=== PATIENT | male | born 1965 | race Caucasian/White ===

== ENCOUNTER 2019-11-12 07:02 | Day surgery (SDC) | payer BC ==
[~2019-11-12] VITALS: Ht 172.7 cm; Wt 76.1 kg
--- NOTE | 2019-11-12 07:51 | NUR ---
History, Chart, Medications and Allergies reviewed before start of procedure. Patient confirms NPO status and agrees with scheduled surgery. Lungs clear T/O to Auscultation. Pre-Op teaching done. Pt verbalizes understanding. Patient States Post-Procedure ride home has been arranged. NO JEWELRY, DENTURES, CONTACTS, GLASSES, OR HEARING DEVICES PRESENT AT ADMIT.
--- NOTE | 2019-11-12 08:10 | NUR ---
HEATH STEPPED AWAY TO DO ERRANDS, PATIENT AWARE.
--- NOTE | 2019-11-12 09:10 | NUR ---
OR REPORT COMLETED AT BEDSIDE WITH VALERIE ALMONTE.
--- NOTE | 2019-11-13 09:12 | NUR ---
11/13/19 0912 Ruthie Mccoy: EDIT CHART.
== END 2019-11-12 12:00 | disposition home or self-care (01) ==
LOC: ORSCMMR 07:02 → ORD 08:30 → ORSCMMR 08:30
PROVIDERS: Surgery
PROC: 0YU50JZ Supplement Right Inguinal Region with Synthetic Substitute, Open Approach (ICD-10-PCS; principal; 2019-11-12 08:30)
DX: K40.90 Unilateral inguinal hernia, without obstruction or gangrene, not specified as recurrent (principal); E78.00 Pure hypercholesterolemia, unspecified; Z87.891 Personal history of nicotine dependence
CPT/HCPCS: A9270-GY; C1781; J0690; J1100; J1885; J2250; J2405; J2704; J3010; J7120

== ENCOUNTER → 2022-05-21 | Outpatient (CLI) | payer BC | END | disposition home or self-care (01) | LOC: LAB SHORT 10:58 → PLD 10:58 | DX: D48.5 Neoplasm of uncertain behavior of skin (principal) | CPT/HCPCS: 88305 ==

== ENCOUNTER 2022-10-03 05:26 | Inpatient (IN) | payer BC ==
[~2022-10-03] VITALS: Ht 172.7 cm; Wt 75.0 kg
[2022-10-03] MEDS ORDERED: OMEPRAZOLE MAGN20 M1 PO (05:46)
[2022-10-03] MEDS ORDERED: ATOR10 PO (05:46)
[2022-10-03] MEDS ORDERED: NITROGLYCERIN0.4 M3 SL (05:47)
[2022-10-03 06:21] LABS: BASOPHILS ABSOLUTE AUTO 0.07 K/mm3 (0.00-0.23); BASOPHILS PERCENT AUTO 1 % (0-2); EOSINOPHILS ABSOLUTE AUTO 0.33 K/mm3 (0.00-0.68); EOSINOPHILS PERCENT AUTO 5 % (0-6); Hematocrit 46.1 % (37.0-53.0); Hemoglobin 15.4 g/dL (13.5-17.5); IMMATURE GRAN ABSOLUTE AUTO 0.01 K/mm3 (0.00-0.10); IMMATURE GRAN PERCENT AUTO 0 % (0-1); LYMPHOCYTES ABSOLUTE AUTO 1.75 K/mm3 (0.84-5.20); LYMPHOCYTES PERCENT AUTO 25 % (21-46); MONOCYTES ABSOLUTE AUTO 0.58 K/mm3 (0.16-1.47); MONOCYTES PERCENT AUTO 8 % (4-13); Mean Corpuscular HGB 30.9 pg (26.0-34.0); Mean Corpuscular HGB Conc 33.4 g/dL (31.5-36.5); Mean Corpuscular Volume 93 fL (80-100); Mean Platelet Volume 9.5 fL (9.1-12.4); NEUTROPHILS ABSOLUTE AUTO 4.22 K/mm3 (1.96-9.15); NEUTROPHILS PERCENT AUTO 61 % (41-73); Platelet Count 306 K/mm3 (150-400); Red Blood Cell Count 4.98 M/mm3 (4.30-5.90); White Blood Cell Count 6.96 K/mm3 (4.00-11.30)
[2022-10-03 06:33] LABS: Albumin, Blood 3.7 g/dL (3.4-5.0); Bilirubin, Total 0.4 mg/dL (0.1-1.0); Bun/Creatinine Ratio 27.5 (12.0-20.0); Calcium, Blood 8.5 mg/dL (8.5-10.1); Creatinine, Blood 0.8 mg/dL (0.60-1.20); Globulin, Blood 3.7 g/dL (2.2-4.0); Potassium, Blood 4.1 mmol/L (3.5-5.5); Total Protein, Blood 7.4 g/dL (6.4-8.2)
[2022-10-03 08:21] LABS: Anti-Xa UFH, PHA Monitoring <0.10 IU/mL; International Normalized Ratio 0.99; Prothrombin Time Results 10.4 Sec (9.7-11.5)
--- NOTE | 2022-10-03 13:08 | NUR ---
Pt arrived to PCU 14. Denies chest pain, dyspnea nor any other discomfort. sitting up in bed, appears to be slightly nervous, but otherwise not in any anxiety nor distress. Respirations even, unlabored, skin pink warm and dry, and sinus rhythm noted by telemetry monitoring. vital signs are stable. Attempted to call his Oksana to notify her of pt's location in hospital. Unable to reach her, nor able to find her in any of the waiting areas.
--- NOTE | 2022-10-03 15:10 | NUR ---
Pt resting quietly in bed, eyes closed, but awake. is at the bedside. Denies any chest pain/dyspnea. NOrmal sinus rhythm noted on front desk monitor.
[2022-10-03 15:48] LABS: SARS-Cov-2 (COVID-19) PCR, MMC NEGATIVE (NEGATIVE)
--- NOTE | 2022-10-03 21:00 | NUR ---
ASSUMPTION OF CARE/ASSESSMENT: PT ARRIVED BACK FROM [facility] AT 1905 WITH A R. RADIAL ACCESS SITE; NO STENTSP PLACED DURING THE PROCEDURE D/T SIGNIFICANT BLOCKAGES BEING MORE COMPLEX. PLANS FOR PT TO BE [place] CABG SURGERY. ACCESS SITE LOOKS GOOD WITH NO BLEEDING OR HEMATOMA PRESENT. PT HR IN THE 80'S WITH SBP 120-130'S. PT HAS NO C/O CHEST PAIN. PT ON RA WITH SPO2 97< AND NO C/O SOB. HYPOACTIVE BS IN ALL QUADRANTS; ABD SOFT, NON-TENDER. PT REMAINS NPO AT THIS TIME WHILE WAITING FOR COBRA TRANSFER UPDATE. PT AMBULATING TO RESTROOM FOR VOID/ELIMINATION NEEDS WITH A SBA. PT A&O X 4 AND VERY PLEASANT/COOPERATIVE WITH CARE. PPP X4, SKIN INTACT. HEPARIN GTT @ 12 UNITIS. PT USES CALL LIGHT APPROPRIATELY, BED LOWERED, WILL CONTINUE TO MONITOR.
[2022-10-04 04:32] LABS: BASOPHILS ABSOLUTE AUTO 0.07 K/mm3 (0.00-0.23); BASOPHILS PERCENT AUTO 1 % (0-2); EOSINOPHILS ABSOLUTE AUTO 0.54 K/mm3 (0.00-0.68); EOSINOPHILS PERCENT AUTO 9 % (0-6); Hematocrit 44.7 % (37.0-53.0); Hemoglobin 15.5 g/dL (13.5-17.5); IMMATURE GRAN ABSOLUTE AUTO 0.01 K/mm3 (0.00-0.10); IMMATURE GRAN PERCENT AUTO 0 % (0-1); LYMPHOCYTES ABSOLUTE AUTO 2.16 K/mm3 (0.84-5.20); LYMPHOCYTES PERCENT AUTO 37 % (21-46); MONOCYTES ABSOLUTE AUTO 0.52 K/mm3 (0.16-1.47); MONOCYTES PERCENT AUTO 9 % (4-13); Mean Corpuscular HGB 31.4 pg (26.0-34.0); Mean Corpuscular HGB Conc 34.7 g/dL (31.5-36.5); Mean Corpuscular Volume 91 fL (80-100); NEUTROPHILS ABSOLUTE AUTO 2.61 K/mm3 (1.96-9.15); NEUTROPHILS PERCENT AUTO 44 % (41-73); Platelet Count 296 K/mm3 (150-400); RDW Coefficient Variation 12.1 % (11.7-14.2); Red Blood Cell Count 4.94 M/mm3 (4.30-5.90); White Blood Cell Count 5.91 K/mm3 (4.00-11.30)
[2022-10-04 05:07] LABS: Anion Gap 8 mmol/L (6-16); Blood Urea Nitrogen 16 mg/dL (8-24); Bun/Creatinine Ratio 20.6 (12.0-20.0); CHOL/HDL RATIO 2.9; CO2, Blood 26 mmol/L (21-32); Calcium, Blood 8.9 mg/dL (8.5-10.1); Chloride, Blood 106 mmol/L (98-108); Cholesterol 203 mg/dL (50-200); Creatinine, Blood 0.78 mg/dL (0.60-1.20); Glomerular Filtration Rate 103 (60-); Glucose, Blood 101 mg/dL (70-99); HDL Cholesterol 71 mg/dL (>39); LDL/HDL RATIO 1.6; Low Density Lipoprotein Chol 115 mg/dL (0-110); Potassium, Blood 3.9 mmol/L (3.5-5.5); Sodium, Blood 140 mmol/L (136-145); Triglycerides 84 mg/dL (30-160); Very Low Density Lipoprot Chol 16 mg/dL (6-32)
--- NOTE | 2022-10-04 06:17 | NUR ---
SHIFT SUMMARY: NO ACUTE CHANGES THIS SHIFT. PT TR BAND REMOVED AND SITE REMAINS IN GOOD CONDITION; CLEAR TEGADERM IN PLACE AND ARMBOARD SECURED. VSS THROUGHOUT THE NIGHT. PT SLEPT ON AND OFF. HEPARIN GTT @ 13 UNITS. PT ACCEPTED AT [facility] AND AWAITING OPEN BED; PT AND SPOUSE UPDATED. PT HAD SMALL BREAKFAST THIS MORNING AROUND 0500. WILL CONTINUE TO MONITOR UNTIL ONCOMING RN ARRIVES.
--- NOTE | 2022-10-04 08:30 | NUR ---
PT ALERT AND ORIENTED X4, PLEASANT, AND CONVERSANT. PT AT BEDSIDE. PT C/O INTERMITTENT CHEST TIGHTNESS THROUGHOUT THE NIGHT. HE RATES THE PAIN 3/10 AND STATES IT SUBSIDES WITHIN 60 SECONDS OR SO. PT HAD EPISODE OF CP WITH THIS RN IN ROOM. HE DENIES ANY SOB BUT C/O MILD DIAPHORESIS DURING EPSIODE. TOOTH CUTTER CONTACT WHEEL NOTIFIED, NO SIGNIFICANT CHANGES NOTED IN ANY LEADS. PT DENIES ANY SOB. PT SKIN INTACT, NO LESIONS OR ECCHYMOSIS NOTED. PT RIGHT RADIAL ACCESS SITE WNL, TEGADERM AND ARMBOARD REMAIN IN PLACE. PLAN TO TRANSFER PT TO [facility] AROUND 1400 TODAY FOR POSSIBLE CABG PROCEDURE.
--- NOTE | 2022-10-04 08:55 | NUR ---
Heparin gtt adjusted per new orders.
--- NOTE | 2022-10-04 14:49 | NUR ---
PT REMAINS A/O X4 AT THIS TIME. PT DENIES ANY CP SINCE EPISODE EARLIER THIS SHIFT. PT ABLE TO AMBULATE AND REPOSITION INDEPENDENTLY. RADIAL ACCESS SITE WNL, NO ERYTHEMA OR DRAINAGE NOTED. TEGADERM AND ARMBOARD REMAIN IN PLACE. PT [facility]CE[facility] A BED AT [facility]. REPORT WAS GIVEN TO VALERIE FERNANDEZ BY THIS RN @[id number]. TRANSPORTATION PLANS TO PLATE COLORER THE PATIENT IN THE NEXT 30 MINUTES.
--- NOTE | 2022-10-04 15:10 | NUR ---
PT LEFT FACILITY WITH EMS TO TRANSFER TO [facility] AT APPROX 1500.
== END 2022-10-04 15:07 | disposition short-term general hospital (02) | DRG 287 ==
LOC: ER 05:26 → ERHOLD 08:25 → PCU 08:25
PROVIDERS: Internal Medicine Cardiovascular Disease; Student in an Organized Health Care Education/Training Program; ADMIT Internal Medicine
PROC: B211YZZ Fluoroscopy of Multiple Coronary Arteries using Other Contrast (ICD-10-PCS; principal; 2022-10-03)
DX: I25.110 Atherosclerotic heart disease of native coronary artery with unstable angina pectoris (principal); I50.22 Chronic systolic (congestive) heart failure; I11.0 Hypertensive heart disease with heart failure; K21.9 Gastro-esophageal reflux disease without esophagitis; E78.00 Pure hypercholesterolemia, unspecified; R94.39 Abnormal result of other cardiovascular function study; Z20.822 Contact with and (suspected) exposure to COVID-19; Z79.02 Long term (current) use of antithrombotics/antiplatelets; Z79.899 Other long term (current) drug therapy; Z98.890 Other specified postprocedural states; Z90.49 Acquired absence of other specified parts of digestive tract; Z98.49 Cataract extraction status, unspecified eye
CPT/HCPCS: 36415; 71046; 76937; 80048; 80053; 80061; 83690; 84484; 85025; 85520; 85610; 85730; 93005; 93010; 93306; 93454; 96365; 96366; 99152; 99153; 99285-25; A9270; C1769; C1887; C1894; J1644; J2250; J3010; J7030; J7050; Q9967; U0004

== ENCOUNTER 2023-08-09 08:53 | Day surgery (SDC) | payer BC ==
[~2023-08-09] VITALS: Ht 174 cm; Wt 73.2 kg
[~2023-08-09 08:53] MED LIST: ASPI81CH PO; ATOR10 PO; KAPSPARGO SPRIN25 MG PO; NITROGLYCERIN0.4 M3 SL; OMEPRAZOLE MAGN20 M1 PO
[2023-08-09 09:56] VITALS: BP 132/93
--- NOTE | 2023-08-09 10:10 | NUR ---
Ambulatory in Day Surgery. History, Chart, Medications and Allergies reviewed before start of procedure. Patient confirms NPO status and agrees with scheduled surgery. Patient states colon prep results clear/yellow. Pre-Op teaching done. Pt verbalizes understanding. Patient States Post-Procedure ride home has been arranged.
--- NOTE | 2023-08-09 10:37 | NUR ---
08/09/23 [address] GODOY; SEE ANESTHESIA RECORDS.
[2023-08-09 11:25] VITALS: BP 118/68
[2023-08-09 11:40] VITALS: BP 116/72
--- NOTE | 2023-08-09 11:55 | NUR ---
Patient up to Ambulate independently. Gait steady. Discharge instructions reviewed with patient. Patient verbalizes understanding. Copy given to patient to take home. Patient States Post-Procedure ride home has been arranged. Discharged via wheelchair to private car for ride home.
== END 2023-08-09 11:55 | disposition home or self-care (01) ==
LOC: ORSCMMR 08:53 → ORD 10:30 → ORSCMMR 11:55
PROVIDERS: Internal Medicine Gastroenterology
PROC: 0DBL8ZX Excision of Transverse Colon, Via Natural or Artificial Opening Endoscopic, Diagnostic (ICD-10-PCS; principal; 2023-08-09 10:30)
DX: Z12.11 Encounter for screening for malignant neoplasm of colon (principal); D12.3 Benign neoplasm of transverse colon; K57.30 Diverticulosis of large intestine without perforation or abscess without bleeding; G47.33 Obstructive sleep apnea (adult) (pediatric); Z79.899 Other long term (current) drug therapy; E78.00 Pure hypercholesterolemia, unspecified; K21.9 Gastro-esophageal reflux disease without esophagitis; Z79.82 Long term (current) use of aspirin
CPT/HCPCS: 88305; J2704; J7120